=== PATIENT | female | born 1945 | race Caucasian/White ===

== ENCOUNTER 2018-01-24 16:42 | Inpatient (IN) | payer OTHER ==
[~2018-01-24] VITALS: Ht 157.5 cm; Wt 98.9 kg
--- NOTE | ~2018-01-24 | EKG ---
[place] [address] [facility] [place] [address] ELECTROCARDIOGRAM REPORT Name: ERANPANKAJ L Room #: 457-P [facility] M.R.#: [id number] Admission: 01/24/18 Attend Phys: Ruslan Shearer MD Discharge: Date of : 47 Report #: [id number] THIS REPORT FOR: //name// [facility] ED Test Date: 2018-01-24 Test Time: 17:01:56 Pat Name: PANKAJ BARILLAS Department: Room: Gender: F [employer] Cleaning Machine Operator: FRAN : 1945 Requested By: Alexandria Shultz Order Number: [id number] MD: Raoul Lopez Measurements Intervals Paicines Rate: 76 P: 64 DE: 178 QRS: -51 QRSD: 112 T: 28 QT: 391 QTc: 440 Interpretive Statements Sinus rhythm Poor R wave progression Inferior infarct, old Compared to ECG 08/14/2014 18:57:12 No significant change was found Electronically Signed On 01-25-2018 7:25:24 CDT by Raoul Lopez [email or web address] <ELECTRONICALLY SIGNED> By: Raoul Lopez MD, [facility] 01/25/18 0725 00 00 Raoul Lopez MD, [facility] /EPI
[~2018-01-24 16:42] MED LIST: ACETAMINOPHEN325 M1 PO; ADVAIR HFA 115-12 GM INH; ALDACTONE25 MG PO; ASPIRIN325 PO; ASPIRIN81 M2 PO; ATIVAN0.5 MG PO; CARVEDILOL6.25 MG PO; COMBIVENT INH; COUMADIN 3 MG TA3 MG PO; COUMADIN 5 MG TA5 M1 PO; EFFIENT10 MG PO; ELIQUIS5 MG PO; IBUPROFEN200 M2 PO; LASIX 20 MG TAB20 MG PO; LEVAQUIN 500 M500 M2 PO; LISINOPRIL10 MG PO; LISINOPRIL5 MG PO; MUCINEX600 MG PO; NITROGLYCERIN0.4 MG SUBLING; NORCO 5-325 TA1 EACH PO; PLAVIX 75 MG TA75 M1 PO; PREDNISONE 5 MG5 M1 PO; PREDNISONE50 MG PO; SPIRONOLACTONE25 M3 PO; TUMS PO; VENTOLIN HFA 1818 GM INH; ZOCOR 20 MG TAB20 M1 PO; ZPAK PO
[2018-01-24 16:45] VITALS: BP 122/76
[2018-01-24 17:54] LABS: ABSOLUTE NEUTROPHILS 7.9 thou/uL (1.4-8.2); BASOPHILS 0.8 % (0.0-2.0); EOSINOPHILS 1.5 % (0.0-3.0); HEMOGLOBIN 17.4 gm/dL (12.0-15.0); LYMPHOCYTES 19.4 % (24.0-44.0); MCH 31.6 pg (26.0-34.0); MCHC 34.8 g/dL (28.0-37.0); MCV 90.8 fL (80.0-100.0); MONOCYTES 8.8 % (1.0-8.0); PLATELET COUNT 248 thou/uL (150-400); POLYS 69.5 % (36.0-66.0); RDW 14.8 % (10.5-14.5); WBC 11.3 thou/uL (4.0-11.0)
[2018-01-24 18:00] LABS: ANION GAP 5 mmol/L (7-16); BUN 13 mg/dL (7-18); CHLORIDE 101 mmol/L (98-107); CO2 30 mmol/L (21-32); CREATININE 0.9 mg/dL (0.6-1.0); GLUCOSE 122 mg/dL (74-106); POTASSIUM 4.2 mmol/L (3.5-5.1); SODIUM 136 mmol/L (136-145)
[2018-01-24 18:09] LABS: TROPONIN-I <0.06 ng/mL (<0.06)
[2018-01-24 20:23] VITALS: BP 131/66
[2018-01-24 20:24] VITALS: BP 131/66
[2018-01-25 04:21] LABS: CREATININE 1.1 mg/dL (0.6-1.0); POTASSIUM 4.2 mmol/L (3.5-5.1)
[2018-01-25 04:35] LABS: HEMATOCRIT 45.4 % (37.0-47.0); HEMOGLOBIN 15.7 gm/dL (12.0-15.0); MCH 31.6 pg (26.0-34.0); MCHC 34.5 g/dL (28.0-37.0); MCV 91.5 fL (80.0-100.0); RBC 4.96 mil/uL (4.20-5.00); RDW 15.1 % (10.5-14.5); WBC 7.9 thou/uL (4.0-11.0)
[2018-01-25 05:28] VITALS: BP 92/41
[2018-01-25 09:07] VITALS: BP 107/45
[2018-01-25 16:39] VITALS: BP 104/83
[2018-01-25 20:00] VITALS: BP 126/60
[2018-01-26 04:00] VITALS: BP 126/63
[2018-01-26 07:20] VITALS: BP 117/60
[2018-01-26 16:03] VITALS: BP 117/66
[2018-01-26 20:09] VITALS: BP 126/59
[2018-01-27 03:50] VITALS: BP 140/76
[2018-01-27 08:00] VITALS: BP 143/78
[2018-01-27 15:12] VITALS: BP 120/76
[2018-01-27 17:37] VITALS: BP 147/73
[2018-01-27 19:29] VITALS: BP 123/61
[2018-01-28 08:25] VITALS: BP 145/50
[2018-01-28] MEDS ORDERED: CEFDINIR300 MG PO (10:09)
[2018-01-28 12:20] VITALS: BP 145/50
== END 2018-01-28 14:07 | disposition home or self-care (01) | DRG 193 ==
LOC: ER 16:42 → EROBS 18:56 → 4W 18:56 → ENTRNSPT 01-27 17:09 → SICU 01-27 17:20
PROVIDERS: Emergency Medicine; Nurse Practitioner Family
DX: J18.9 Pneumonia, unspecified organism (principal); J96.01 Acute respiratory failure with hypoxia; T17.590A Other foreign object in bronchus causing asphyxiation, initial encounter; J20.9 Acute bronchitis, unspecified; I25.10 Atherosclerotic heart disease of native coronary artery without angina pectoris; E78.5 Hyperlipidemia, unspecified; F17.210 Nicotine dependence, cigarettes, uncomplicated; E66.9 Obesity, unspecified; Z68.38 Body mass index [BMI] 38.0-38.9, adult; Z88.0 Allergy status to penicillin; X58.XXXA Exposure to other specified factors, initial encounter; Y93.89 Activity, other specified; Y92.89 Other specified places as the place of occurrence of the external cause; Y99.8 Other external cause status; Z86.718 Personal history of other venous thrombosis and embolism; Z95.5 Presence of coronary angioplasty implant and graft
CPT/HCPCS: 10045; 15001